=== PATIENT | female | born 1960 | race Caucasian/White ===

== ENCOUNTER 2017-04-24 06:56 | Day surgery (SDC) | payer MEDICAID, OTHER ==
[~2017-04-24] VITALS: Ht 154.9 cm; Wt 82.2 kg
[~2017-04-24 06:56] MED LIST: OMEP20CA9 PO
[2017-04-24 07:55] VITALS: Ht 154.9 cm; Wt 82.2 kg
[2017-04-24 08:35] VITALS: BP 119/73; PULSE 70; RESP 13
[2017-04-24] MEDS ORDERED: MIDAZOLAM 1 MG/ML 2 ML INJ ONE ×2 (09:25)
[2017-04-24] MEDS ORDERED: FENTAnyl 50 MCG/ML VIAL ONE (09:25)
[2017-04-24 10:00] VITALS: BP 120/63; PULSE 64; RESP 12
--- NOTE | 2017-04-24 10:36 | GILP ---
DATE OF PROCEDURE: 04/24/2017 NAME OF PROCEDURES: 1. Esophagogastroduodenoscopy and biopsy. 2. Colonoscopy and biopsy and polypectomy. SURGEON: Urban Duncan MD PREOPERATIVE DIAGNOSES: 1. Abdominal pain. 2. Chronic diarrhea. POSTOPERATIVE DIAGNOSES: 1. Gastritis with erosions. 2. Gastric polyps on the antrum and biopsies were taken for histopathology. 3. Small bowel biopsies were taken to rule out celiac disease. 4. Colonoscopy all the way to the cecum. 5. Sigmoid colon polyp was removed using the snare and electrocautery. 6. Diverticulosis of the colon. 7. Random biopsies were taken to rule out microscopic colitis. 8. Internal hemorrhoids. INDICATION FOR THE PROCEDURE: Ms. Cathie Wilkins is a 56-year-old female patient who had upper abdomin al pain, not responding to therapy. The patient also had chronic diarrhea. The patient was schedul ed for endoscopy and colonoscopy for further evaluation. The procedures and possible complications were well explained to the patient. The patient understoo d and consented to the procedure. DESCRIPTION OF PROCEDURE: Under the influence of fentanyl and Versed, the gastroscope was carefully introduced into the esophagus and under direct vision, it was advanced to the stomach and through t he pylorus into the duodenal bulb and descending duodenum. FINDINGS: ESOPHAGUS: The mucosa was normal. STOMACH: The patient had gastritis with erosions. She also had polyps on the gastric antrum and bi opsies were taken for histopathology. DUODENUM: The duodenal bulb and descending duodenum are normal. Small bowel biopsies were taken to rule out celiac disease. The colonoscope was carefully introduced in the rectum and under direct vision, it was advanced all the way to the cecum. FINDINGS: The patient had a sigmoid colon polyp and it was removed using the snare and electrocaute ry. The patient was noted to have diverticulosis of the colon and internal hemorrhoids. Random bio psies were taken to rule out microscopic colitis. She tolerated the procedures very well and there was no complication from the procedures. At the en d of the procedures, she was awake with stable vital signs and she was discharged home to the care o f her family. IMPRESSION: Please see postoperative diagnoses. PLAN: 1. Omeprazole 40 mg p.o. q.a.m. 2. Questran 1 scoopful dissolved in a glass of water p.o. b.i.d. 3. Await histopathology reports. 4. Next screening colonoscopy in 10 years. Dictated By: URBAN TINSLEY/ANDREA Conf#: [id number] DID#: [id number] CC: URBAN DUNCAN MD;*EndCC*
== END 2017-04-24 10:39 | disposition home or self-care (01) ==
LOC: GIL 06:56
PROVIDERS: ATTEND Internal Medicine Gastroenterology
DX: K29.50 Unspecified chronic gastritis without bleeding (principal); D12.5 Benign neoplasm of sigmoid colon; K57.90 Diverticulosis of intestine, part unspecified, without perforation or abscess without bleeding; K64.8 Other hemorrhoids
CPT/HCPCS: 43239; 45380; 88305; 88312; J2250; J3010; Z7610